=== PATIENT | female | born 1980 | race African-American/Black ===

== ENCOUNTER 2017-02-03 15:29 | Emergency (ER) | payer MEDICAID, OTHER ==
[~2017-02-03] VITALS: Ht 157.5 cm; Wt 106.0 kg
[~2017-02-03 15:29] MED LIST: FLAG250T PO; ORTH0.35 PO
[2017-02-03 15:37] VITALS: BP 152/92; PULSE 82; RESP 18; TEMP 98; O2SAT 98
--- NOTE | 2017-02-03 16:03 | PD ---
HPI Chief Complaint: Back/ Neck Pain or Injury Time Seen by Provider: 16:02 Travel History International Travel<30 days: No Contact w/Intl Traveler<30days: No Traveled to known affect area: No History of Present Illness HPI 36-year-old female presents to the ED for evaluation of less than 48 hour history of neck and shoulder pain. Patient states the pain was present when she woke up yesterday morning. It is worsened by range of motion of the neck. She endorses mild accompanying headache. She denies fever or chills, numbness, tingling, weakness, limitations to range of motion or loss of strength of the extremities. She denies known trauma or previous injury to the area. She treated at home by resting which she states has made the pain worse. She denies chronic health problems and takes no daily medications. NKDA. PFSH Past Medical History Anemia: Yes (hx ) Diminished Hearing: No Hiatal Hernia: Yes (REPAIRED A CHILD) Immunizations Current: Yes Tetanus Vaccination: < 5 Years Influenza Vaccination: No ?: Not : 3 Para: 3 Miscarriage: 0 : 0 Ovarian Cysts: Yes Past Surgical History Section: Yes (X3) Other Surgery: Yes (HERNIA A BABY) Social History Alcohol Use: No Tobacco Use: No Substance Use: No Allergies-Medications (Allergen,Severity, Reaction): Coded Allergies: No Known Allergies (Verified , 02/03/17) Reported Meds & Prescriptions Reported Meds & Active Scripts Active Flexeril (Cyclobenzaprine HCl) 10 Mg Tab 10 Mg PO TID Ibuprofen 800 Mg Tab 800 Mg PO Q8H Review of Systems Except as stated in HPI: all other systems reviewed are Neg Physical Exam Narrative GENERAL: Well-nourished, well-developed patient. SKIN: Focused skin assessment warm/dry. HEAD: Normocephalic. EYES: No scleral icterus. No injection or drainage. NECK: Supple, trachea midline. No JVD or lymphadenopathy. No midline tenderness to palpation. Tender to palpation of the trapezius bilaterally. Mild palpable spasm. The patient maintains full, active range of motion. Rotation of the neck elicits pain. CARDIOVASCULAR: Regular rate and rhythm without murmurs, gallops, or rubs. RESPIRATORY: Breath sounds equal bilaterally. No accessory muscle use. GASTROINTESTINAL: Abdomen soft, non-tender, nondistended. MUSCULOSKELETAL: No cyanosis, or edema. 5/5 strength in bilateral upper extremities. Patient demonstrates a normal gait. NEUROLOGICAL: Awake and alert. Cranial nerves II through XII intact. Motor and sensory grossly within normal limits. Normal speech. BACK: Nontender without obvious deformity. No CVA tenderness. Data Data Last Documented VS Vital Signs Date Time Temp Pulse Resp B/P Pulse Ox O2 Delivery O2 Flow Rate FiO2 02/03/17 15:37 98.0 82 18 152/92 98 Orders Ibuprofen (Motrin) (02/03/17 16:15) [facility] Medical Decision Making Medical Screen Exam Complete: Yes Emergency Medical Condition: Yes Differential Diagnosis Musculoskeletal pain versus muscle spasm versus radiculopathy versus meningitis versus other Narrative Course 36-year-old female presents to the ED for evaluation of less than 48 hour history of neck and shoulder pain, worsened by range of motion of the neck. Endorses mild, generalized headache. She denies fever or chills, numbness, tingling, weakness, limitations to range of motion or loss of strength of the extremities, known trauma or previous injury. Vitals reviewed. Physical exam reveals a pleasant black female, sitting up on the stretcher in no acute distress. No midline tenderness to palpation of the neck. Palpable spasm of bilateral trapezius. Range of motion of the neck elicits pain. No focal neural deficits. This is musculoskeletal neck pain and spasm. Patient was prescribed a short course of anti-inflammatories and muscle relaxants. First dose of ibuprofen was administered in the ED. She is instructed to take the medication as prescribed, return to normal, gentle activities as tolerated, follow up with the primary care provider. She indicated understanding of the instructions and is amenable to plan of care. She stable and discharged home. Diagnosis Primary Impression: Musculoskeletal neck pain Additional Impression: Muscle spasms of neck Referrals: Primary Care Physician Patient Instructions: Acute Neck Pain (ED), General Instructions, Muscle Spasm (ED) Additional Instructions: Rest, hydrate. A mixture of rest and activity is best for neck and back pain. Resume normal, gentle activities as tolerated. No strenuous physical activities for the next few days Take ibuprofen 3 times a day as prescribed. Take Flexeril up to 3 times a day as needed for muscle spasms. Flexeril can make you drowsy. Do not drive with taking Flexeril. Applying ice or heat to areas with sore muscles may help to improve your patient. Do not apply ice/ heat for longer than 20 m/h. Follow-up with your primary care provider. Return to the ED for any urgent or emergent medical condition. Med/Other Pt SpecificInfo: Prescription(s) given Scripts Cyclobenzaprine (Flexeril)10 Mg Tab10 Mg PO TID #12 TAB Ref 0 Prov:Yeison Gonzalez MD 02/03/17 Ibuprofen 800 Mg Tuv186 Mg PO Q8H #15 TAB Ref 0 Prov:Yeison Gonzalez MD 02/03/17 Disposition: 01 DISCHARGE HOME Condition: Stable Katey Haskins Feb 03, 2017 16:03
[2017-02-03] MEDS ORDERED: CYCL1TAB29 PO (16:13)
[2017-02-03] MEDS ORDERED: IBUP800T23 PO (16:13)
[2017-02-03] MEDS ORDERED: IBUPROFEN 800 MG TAB PO ONE (16:15)
== END 2017-02-03 16:23 | disposition home or self-care (01) ==
LOC: PHEFT 15:29
DX: M54.2 Cervicalgia (principal); M62.838 Other muscle spasm
CPT/HCPCS: 99283